=== PATIENT | female | born 1970 | race Caucasian/White ===

== ENCOUNTER → 2020-05-08 | Outpatient (CLI) | payer BC ==
[~2020-05-08] MED LIST: ATEN25TA PO; BUDE9TAB PO; LISI10TA22 PO; METF500T13 PO; PEPC1TAB5 PO; SYNT25TA PO
== END ==
LOC: M LAB 14:25
PROVIDERS: ATTEND Internal Medicine Gastroenterology
DX: R14.0 Abdominal distension (gaseous) (principal)

== ENCOUNTER → 2020-05-21 | Outpatient (CLI) | payer BC ==
[~2020-05-21] MED LIST changes: +E-Z-PAQUE 96% w/w SUSP 176GM BTL As Ordered ONE; -LISI10TA22 PO; +LISI10TA4 PO
--- NOTE | 2020-05-21 16:12 | REP ---
Examination Requested: SBFT Reason For Exam: Abnormal findings on imaging of the digestive tract Small Bowel Follow Through The procedure was performed by BERNABE Carey, under the direct supervision of Dr. Scott. The images were reviewed with Dr. Scott. The inside outside sales representative film shows no organomegaly or pathological masses. The intestinal gas pattern appears normal. The barium was administered and the barium column was followed through the small bowel to the level of the terminal ileum. Small bowel transit time was approximately [ ] minutes. During fluoroscopy gentle palpation shows all loops are freely mobile and pliable. There are no fixed or angulated loops. The small bowel mucosal pattern is normal in course and caliber. There is no transition to suggest a partial small-bowel obstruction. Spot filming of the terminal ileum shows it to be unremarkable. Incidental note is made of diverticula in the descending colon . Impression: 1. Unremarkable small bowel follow-through. 2. Incidental finding of colonic diverticula in the descending colon. 0.6 minutes of fluoroscopy time was utilized for this procedure. Some fluoroscopic images are performed with last image hold technology. These images require no additional radiation. Reviewed by BERNABE Luz 05/21/2020 03:58 P Electronically Signed by Krishna Scott MD 05/21/2020 04:04 P
== END ==
LOC: M RAD 09:19
PROVIDERS: ATTEND Internal Medicine Gastroenterology
DX: R93.3 Abnormal findings on diagnostic imaging of other parts of digestive tract (principal); R19.4 Change in bowel habit

== ENCOUNTER → 2020-06-01 | Outpatient (CLI) | payer BC ==
[~2020-06-01] MED LIST changes: -E-Z-PAQUE 96% w/w SUSP 176GM BTL As Ordered ONE
== END ==
LOC: M LABSMTC 10:06
PROVIDERS: ATTEND Anesthesiology
DX: Z01.818 Encounter for other preprocedural examination (principal); Z11.59 Encounter for screening for other viral diseases
CPT/HCPCS: C9803; U0003

== ENCOUNTER 2020-06-06 12:02 | Day surgery (SDC) | payer BC ==
[~2020-06-06] VITALS: Ht 162.6 cm; Wt 91.6 kg
[~2020-06-06 12:02] MED LIST changes: +LIDOCAINE 2% 100MG/5ML SDV (FOR ANES.) As Ordered ONE; +NS 1,000 ML IV ONE; +propofoL 200 MG/20 ML VIAL As Ordered ONE
--- NOTE | 2020-06-06 13:30 | ROOR ---
Patient Name: Barbara Ramirez Procedure Date: 06/06/2020 1:13 PM Date of : 1970 Age: 49 Room: [facility] Gender: Female Note Status: Finalized Procedure: Upper GI endoscopy Indications: Abdominal pain, Abnormal CT of the GI tract Providers: Artem LONG MD Referring MD: Maira Steve Md Requesting Provider: Medicines: Monitored Anesthesia Care Complications: No immediate complications. Procedure: Pre-Anesthesia Assessment: - The heart rate, respiratory rate, oxygen saturations, blood pressure, adequacy of pulmonary ventilation, and response to care were monitored throughout the procedure. The Endoscope was introduced through the mouth, and advanced to the third part of duodenum. The upper GI endoscopy was accomplished without difficulty. The patient tolerated the procedure well. Findings: The examined esophagus was normal. Two 5 mm semi-sessile fundic gland polyps with no stigmata of recent bleeding were found in the gastric body. The polyp was removed with a cold snare. Resection and retrieval were complete. The exam of the stomach was otherwise normal. The examined duodenum was normal. Biopsies for histology were taken with a cold forceps for evaluation of celiac disease. Impression: - Normal esophagus. - Two fundic gland polyps in the stomach. Resected and retrieved. - Stomach is otherwise normal in forward and retroflexed view. - Normal examined duodenum. Biopsied. Recommendation: - Await pathology results. - Observe patient's clinical course. - Telephone endoscopist for pathology results in 2 weeks. Artem Long MD Artem LONG MD 06/06/2020 1:30:11 PM Electronically signed by Artem LONG MD Number of Addenda: 0 Note Initiated On: 06/06/2020 1:13 PM Estimated Blood Loss: Estimated blood loss: none.
[2020-06-06] MEDS ORDERED: propofoL 200 MG/20 ML VIAL As Ordered ONE (13:40)
--- NOTE | 2020-06-06 14:04 | ROOR ---
Patient Name: Barbara Ramirez Procedure Date: 06/06/2020 1:15 PM Date of : 1970 Age: 49 Room: [facility] Gender: Female Note Status: Finalized Procedure: Colonoscopy Indications: Abnormal CT of the GI tract, Mixed irritable bowel syndrome Providers: Artem LONG MD Referring MD: Maira Steve Md Requesting Provider: Medicines: Monitored Anesthesia Care Complications: No immediate complications. Procedure: Pre-Anesthesia Assessment: - The heart rate, respiratory rate, oxygen saturations, blood pressure, adequacy of pulmonary ventilation, and response to care were monitored throughout the procedure. The Colonoscope was introduced through the anus and advanced to 10 cm into the ileum. The colonoscopy was performed without difficulty. The patient tolerated the procedure well. The quality of the bowel preparation was good. Findings: The perianal and digital rectal examinations were normal. The terminal ileum appeared normal. Biopsies were taken with a cold forceps for histology. Mild sigmoid diverticulosis and small internal hemorrhoids. The exam was otherwise normal throughout the examined colon. Biopsies for histology were taken with a cold forceps from the entire colon for evaluation of microscopic colitis. There is no endoscopic evidence of inflammation in the entire colon. There is no endoscopic evidence of inflammation in the terminal ileum. Impression: - The terminal ileum was normal. Biopsied. - Mild sigmoid diverticulosis and small internal hemorrhoids. - The colon is otherwise normal. - Biopsies were taken with a cold forceps from the entire colon for evaluation of microscopic colitis. (- Inflammatory Bowel Disease/colitis/enteritis was not seen). (- Irritable bowel syndrome suspected). Recommendation: - Await Biopsies.- If todays biopsies exclude microscopic colitis, will stop budesonide - Telephone endoscopist for pathology results in 2 weeks. - Use Bentyl (dicyclomine) 10 to 20 mg PO Q 4-6 hrs PRN for irritable bowel syndrome - Script was sent to your pharmacy on file. Artem Long MD Artem LONG MD 06/06/2020 2:04:20 PM Electronically signed by Artem LONG MD Number of Addenda: 0 Note Initiated On: 06/06/2020 1:15 PM Estimated Blood Loss: Estimated blood loss: none.
[2020-06-06 14:30] VITALS: BP 127/78
== END 2020-06-06 14:40 | disposition home or self-care (01) ==
LOC: M OPP 12:02
PROVIDERS: ATTEND Internal Medicine Gastroenterology
DX: K64.8 Other hemorrhoids (principal); K57.30 Diverticulosis of large intestine without perforation or abscess without bleeding; K58.2 Mixed irritable bowel syndrome; R93.3 Abnormal findings on diagnostic imaging of other parts of digestive tract; K31.7 Polyp of stomach and duodenum; R10.84 Generalized abdominal pain; E11.9 Type 2 diabetes mellitus without complications; E03.9 Hypothyroidism, unspecified; I10 Essential (primary) hypertension; Z80.0 Family history of malignant neoplasm of digestive organs; Z79.899 Other long term (current) drug therapy; Z88.0 Allergy status to penicillin; Z88.2 Allergy status to sulfonamides

== ENCOUNTER → 2022-09-01 | Outpatient (REF) ==
[~2022-09-01] MED LIST changes: -LIDOCAINE 2% 100MG/5ML SDV (FOR ANES.) As Ordered ONE; +LISI10TA22 PO; -LISI10TA4 PO; -NS 1,000 ML IV ONE; -propofoL 200 MG/20 ML VIAL As Ordered ONE
== END ==
LOC: M SLEEP HO 10:30
PROVIDERS: ATTEND Student in an Organized Health Care Education/Training Program
DX: G47.33 Obstructive sleep apnea (adult) (pediatric) (principal)

== ENCOUNTER → 2022-09-23 | Outpatient (REF) | payer BC ==
[2022-09-23 20:05] LABS: MAGNESIUM URINE RANDOM 8.4 MG/DL; POTASSIUM RANDOM URINE 59.9 MEQ/L
== END ==
LOC: M LAB REF 17:04
PROVIDERS: ATTEND Internal Medicine Nephrology
DX: E87.5 Hyperkalemia (principal)